=== PATIENT | female | born 1945 | race Caucasian/White ===

== ENCOUNTER → 2018-06-13 08:35 | Outpatient (CLI) | payer BC, MEDICARE, SELFPAY ==
[2018-06-13 14:52] LABS: Basophils % 0.2 % (0.1-2.0); Eosinophils # 0.1 K/mm3 (0.0-0.4); Eosinophils % 0.7 % (0.1-12.0); Hematocrit 35.8 % (37.0-47.0); Hemoglobin 11.3 g/dL (12.2-16.2); Lymphocytes # 1.3 K/mm3 (0.7-4.5); Lymphocytes % 17.9 % (10-50); Mean Corpuscular HGB Conc 31.5 g/dL (31.8-35.4); Mean Corpuscular Volume 92.3 fl (81-99); Mean Platelet Volume 9.4 fl (7.4-10.4); Monocytes # 0.5 K/mm3 (0.1-1.0); Monocytes % 6.4 % (1.7-9.3); Neutrophils # 5.4 K/mm3 (1.8-7.8); Neutrophils % 74.9 % (37.0-80.0); Platelet Count 153 K/mm3 (142-424); Red Blood Count 3.88 M/mm3 (4.20-5.40); Red Cell Distribution Width 20.4 % (11.5-17.5); White Blood Count 7.3 K/mm3 (4.8-10.8)
[2018-06-13 15:00] LABS: INR 2.85 (0.9-1.1); Prothrombin Time 28.5 seconds (9.4-11.8)
== END ==
PROVIDERS: PCP Family Medicine; Visit Provider Family Medicine
DX: D64.9 Anemia, unspecified (principal)
CPT/HCPCS: 36415; 85025; 85610

== ENCOUNTER → 2018-06-24 11:37 | Outpatient (CLI) | payer BC, MEDICARE, SELFPAY ==
[2018-06-24 14:53] LABS: INR 2.07 (0.9-1.1); Prothrombin Time 20.8 seconds (9.4-11.8)
== END ==
PROVIDERS: PCP Family Medicine; Visit Provider Family Medicine
DX: Z51.81 Encounter for therapeutic drug level monitoring (principal); Z79.01 Long term (current) use of anticoagulants; I77.9 Disorder of arteries and arterioles, unspecified
CPT/HCPCS: 85610

== ENCOUNTER → 2018-07-09 12:02 | Outpatient (CLI) | payer BC, MEDICARE, SELFPAY ==
[2018-07-09 15:26] LABS: INR 1.96 (0.9-1.1); Prothrombin Time 19.7 seconds (9.4-11.8)
== END ==
PROVIDERS: PCP Family Medicine; Visit Provider Family Medicine
DX: Z51.81 Encounter for therapeutic drug level monitoring (principal); Z79.01 Long term (current) use of anticoagulants; I77.9 Disorder of arteries and arterioles, unspecified
CPT/HCPCS: 85610

== ENCOUNTER → 2018-08-01 11:11 | Outpatient (CLI) | payer BC, MEDICARE, SELFPAY ==
[2018-08-01 14:40] LABS: INR 1.05 (0.9-1.1); Prothrombin Time 10.9 seconds (9.4-11.8)
== END ==
PROVIDERS: PCP Family Medicine; Visit Provider Family Medicine
DX: Z51.81 Encounter for therapeutic drug level monitoring (principal); Z79.01 Long term (current) use of anticoagulants; I77.9 Disorder of arteries and arterioles, unspecified
CPT/HCPCS: 85610

== ENCOUNTER → 2018-08-06 10:01 | Outpatient (CLI) | payer BC, MEDICARE, SELFPAY ==
[2018-08-06 14:40] LABS: INR 1.09 (0.9-1.1); Prothrombin Time 11.3 seconds (9.4-11.8)
== END ==
PROVIDERS: PCP Family Medicine; Visit Provider Family Medicine
DX: Z51.81 Encounter for therapeutic drug level monitoring (principal); Z79.01 Long term (current) use of anticoagulants; I77.9 Disorder of arteries and arterioles, unspecified
CPT/HCPCS: 85610

== ENCOUNTER 2018-12-16 03:26 | Observation (INO) ==
--- NOTE | 2018-12-16 03:44 | Emergency Department Note ---
ED Disposition Clinical Impression: Community acquired pneumonia Qualifiers: Laterality: right Lung location: upper lobe of lung Qualified Code(s): J18.1 - Lobar pneumonia, unspecified organism Disposition: Admitted as Observation Condition on Discharge: Fair Referrals: Dago Acevedo [Primary Care Provider] - - Critical Care Critical Care Time: No Attestation: On , the high probability of a clinically significant, sudden or life threatening deterioration of the following system(s) required my full and direct attention, intervention and personal management. The time I documented below is in addition to time spent performing reported procedures but includes the following listed in this critical care notation. Medical Decision Making - Anshul Inquiry Pt receiving controlled substance: No Vital Signs: 12/16/18 03:44 Temperature 102.1 F H Temperature Source Oral Pulse Rate [Left Radial] 111 H Respiratory Rate 17 Blood Pressure [Left Arm] 129/49 L Blood Pressure Mean [Left Arm] 75 Blood Pressure Source [Left Arm] Automatic Cuff Blood Pressure Position [Left Arm] Sitting 02 Sat by Pulse Oximetry 95 Oxygen Delivery Method Room Air - Lab Data Lab Results 12/16/18 04:00: WBC 7.3, RBC 4.66, Hgb 13.4, Hct 39.9, MCV 85.7, MCH 28.7, MCHC 33.5, RDW 15.1, Plt Count 179, MPV 8.4, Neut % (Auto) 82.8 H, Lymph % (Auto) 9.5 L, [place] % (Auto) 6.5, Eos % (Auto) 0.6, Baso % (Auto) 0.6, Neut # (Auto) 6.0, Lymph # (Auto) 0.7, [place] # (Auto) 0.5, Eos # (Auto) 0.0, Baso # (Auto) 0.0 12/16/18 04:00: Sodium 138, Potassium 3.8, Chloride 103, Carbon Dioxide 24, Anion Gap 14.8, BUN 17, Creatinine 0.93, Estimated Creat Clear 59, Estimated GFR 59, Est GFR ( Amer) 72, Glucose 107 H, Calcium 8.8, Total Bilirubin 0.6, AST 16, ALT 18, Alkaline Phosphatase 49, Total Protein 6.7, Albumin 3.4, Globulin 3.3 H, Albumin/Globulin Ratio 1.0 L 12/16/18 04:00: Lactate 0.8 12/16/18 04:00: PT 22.3 H, INR 2.23 H 12/16/18 04:06: Urine Color Yellow, Urine Appearance Clear, Urine pH 6.0, Ur Specific [place] 1.020, Urine Protein Trace, Urine Glucose (UA) Negative, Urine Ketones Negative, Urine Blood 1+, Urine Nitrate Negative, Urine Bilirubin Negative, Urine Urobilinogen 0.2, Ur Leukocyte Esterase Negative, Urine RBC 3-5, Ur Squamous Epith Cells Occasional, Amorphous Sediment Trace 12/16/18 04:27: Influenza Type A Ag Negative, Influenza Type B Ag Negative 12/16/18 04:27: Group A Strep Rapid Negative Result diagrams: 12/16/18 04:00 12/16/18 04:00 Orders (Tests/Meds): ED MEDICATIONS Generic Name Dose Route Start Last Admin Trade Name Duncan PRN Reason Stop Dose Admin Ceftriaxone Sodium 1 gm/ 50 mls @ 100 mls/hr 12/16/18 04:45 12/16/18 04:52 Sodium Chloride IV 12/30/18 04:44 100 mls/hr Q24H ANDERS Administration Protocol Azithromycin 500 mg/ Sodium 250 mls @ 250 mls/hr 12/16/18 04:45 12/16/18 05:39 Chloride IV 12/30/18 04:44 250 mls/hr Q24H ANDERS Administration Protocol Discontinued Medications Generic Name Dose Route Start Last Admin Trade Name Duncan PRN Reason Stop Dose Admin Acetaminophen 650 mg 12/16/18 04:04 12/16/18 04:09 Acetaminophen 325mg Tab PO 12/16/18 04:05 650 mg ONCE ONE Administration Ioversol 75 ml 12/16/18 05:22 12/16/18 05:23 Rad-Optiray 350 100ml Vial IV 12/16/18 05:23 75 ml ONCE ONE Administration Protocol Sodium Chloride 10 ml 12/16/18 05:22 12/16/18 05:23 Rad-Saline Flush 10ml Syringe IV 12/16/18 05:23 10 ml ONCE ONE Administration ORDERS Category Date Time Status CT abdomen pelvis w con Stat Cat Scan 12/16/18 04:[address] head/brain wo con Stat Cat Scan 12/16/18 04:[address] sinus wo con Stat Cat Scan 12/16/18 04:43 Taken Blood Culture Stat Micro 12/16/18 04:00 Received Strep Screen Confirmation Stat Micro 12/16/18 04:27 Received - Radiology Data #1 Image(s): Chest Image Reviewed: Yes I reviewed the patient's radiology image, Yes I have reviewed radiologist's interpretation FINDINGS: The cardiomediastinal silhouette and pulmonary vascularity are within normal limits. There is patchy density present in the right upper lobe and right lower lobe possibly due to patchy areas of pneumonia. Granulomas present in the left lower lobe. There is a bone plate over lower cervical spine. No acute bony abnormalities. IMPRESSION: Increased markings in the right upper and right lower lobe suggesting areas of patchy infiltrate. Dictated by: Iván Quinonez MD 12/16/2018 04:31 Electronically signed by Iván Quinonez MD in [place] 12/16/2018 04:31 - CT Data CT Scan: Head, Abdomen, Pelvis, Sinus Time Received: 06:11 ([facility] fax) ED CT Reviewed: Yes: I have viewed the radiologist's interpretation Findings Narrative: Sinus: No acute pathology. Abdomen and pelvis: No definite acute abdominal pathologic finding. Head: No definite acute intracranial abnormality. - Physician Consults Physician Consulted: Migue Time: 06:30 Reason -: Admission Comment/Response: Agrees to admit the patient to the hospital. We discussed the patient's clinical information, including history, exam, laboratory and radiology results and ED course. Per hospital procedure, I will write temporary bridge inpatient orders on the patient. Specific orders requested by the admitting physician: Continue Zithromax and Rocephin Medical Decision Narrative: 4:15 AM: [facility] portal accessed. The patient was admitted there is 08/09/2018 through 08/16/2018 for septic shock due to E. coli urinary tract infection/pyelonephritis. This was complicated by hypoxic respiratory failure. 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 6:00 AM: Discussed results with patient. Discussed disposition. She says she lives alone and does not feel well enough to go home. She prefers to stay at this hospital rather than being transferred to [facility]. Call placed to Dr. Camarena, construction driller for unassigned. General Adult HPI - General Stated complaint: High Fever; Sinus infection Time Seen by Provider: 12/16/18 03:44 - History of Present Illness HPI narrative: Patient is a very poor historian. She has numerous complaints. Her main complaint tonight is fever and she thinks she has a sinus infection, has sinus headache with sinus pain and sinus drainage. She also says "that thing in here" pointing to her abdomen, "keeps going back and forth". She says she has had some vomiting, but no diarrhea. She says her abdomen does hurt. On review of systems she also endorses urinary frequency, says that she urinated 15 times a couple of nights ago and has had urinary frequency since. She says she has had 3 urinary tract infections in the past couple of months and had to be admitted to [facility] to the intensive care unit once. Also endorses cough on review of systems. She says she has a "rare disease" and "they cannot figure out what it is". She says "I will probably before they figure out what it is". She says she is seeing "those doctors in [place]". She is currently on clindamycin, initially could not tell us why she was on that antibiotic, but her shed boss remembers later that she is on that for a possible infection in her right hand. Patient says that she has had previous finger amputations by a plastic surgeon in [place] and she sees her for follow-up. She has a small skin opening on her right hand where she had her fingers amputated and therefore was started on clindamycin. That area is not currently bothering her. She says she did have a flu shot this year, but has not had her pneumonia shot this year. - Related Data Home Medications Medication Instructions Recorded Confirmed Aspirin [Aspir 81] 81 mg PO DAILY 12/16/18 12/16/18 Clindamycin HCl 150 mg PO Q6 12/16/18 12/16/18 Gabapentin 600 mg PO TID 12/16/18 12/16/18 Gabapentin [Gabapentin 100mg Cap] 200 mg PO TID 12/16/18 12/16/18 Pantoprazole Sodium [Protonix 40mg 40 mg PO DAILY 12/16/18 12/16/18 tablet] Warfarin Sodium 1 mg PO DAILY 12/16/18 12/16/18 Warfarin Sodium 6 mg PO DAILY 12/16/18 12/16/18 azaTHIOprine [Azathioprine] 100 mg PO DAILY 12/16/18 12/16/18 predniSONE [Deltasone 10mg 20 mg PO DAILY 12/16/18 12/16/18 tablet] Allergies Allergy/AdvReac Type Severity Reaction Status Date / Time morphine Allergy Verified 12/16/18 03:51 Sulfa (Sulfonamide Allergy Verified 12/16/18 03:51 Antibiotics) [facility] History - Hepatitis A Screen Attestation statement:: This patient has been screened for Hepatitis A risk factors. I have reviewed the patient's past medical history: Yes ROS Obtained: Yes All systems reviewed & no additional complaints - Constitutional Constitutional: Reports fever(s) - ENT Ears, Nose, Mouth, and Throat: Reports headache(s), Reports nasal congestion, Reports nasal discharge, Reports sinus pain, Reports sinus pressure, Reports sore throat - Cardiovascular Cardiovascular: Denies chest pain - Respiratory Respiratory: Yes cough, No dyspnea - Gastrointestinal Gastrointestingal: Reports: abdominal pain, nausea, vomiting. Denies: diarrhea - Genitourinary Female Genitourinary: Reports urinary frequency - Neurologic Neurologic: Reports headache(s) Physical Exam - General General appearance: alert, in no apparent distress - Head Head exam: atraumatic, normocephalic - Eye Eye exam: Present: normal appearance, PERRL, EOMI - ENT ENT exam: Present: normal exam, normal oropharynx, mucous membranes moist, TM's normal bilaterally - Neck Neck exam: Present: normal inspection, full ROM, trachea midline. Absent: meningismus, lymphadenopathy - Chest Chest inspection: Present: normal inspection, symmetric chest wall rise - Respiratory Respiratory exam: Present: normal lung sounds bilaterally. Absent: respiratory distress - Cardiovascular Cardiovascular exam: Present: normal rhythm, tachycardia, normal heart sounds - Abdominal Exam Abdominal exam: Present: soft, tenderness, normal bowel sounds. Absent: distention, guarding, rebound, rigidity Abdominal tenderness: Present: diffuse, mild - Extremities Exam Extremities exam: Present: normal capillary refill, other (Amputation of right fingers except for her thumb.) - Expanded Upper Extremity Exam Right Comment: Band-Aid present on right hand. Under the Band-Aid, there is a 3 mm superficial opening in the skin without any erythema or drainage. No significant signs of infection. - Neurological Exam Neurological exam: Present: alert, oriented X3 - Psychiatric Psychiatric exam: Present: normal affect, normal mood - Skin Skin exam: Present: warm, dry
[2018-12-16 04:11] LABS: Microscopic, Urine URINE MICROSCOPIC (MICROSCOPIC)
[2018-12-16 04:13] LABS: Appearance,Urine CLEAR (Clear); Bilirubin,Urine Negative (Negative); Blood, Urine 1+ (Negative); Color,Urine YELLOW (Yellow); Glucose,Urine (UA) Negative (Negative); Ketones,Urine Negative (Negative); Leukocyte Esterase,Urine Negative (Negative); Protein,Urine TRACE (Negative); Urobilinogen,Urine 0.2 EU/dl (0.2)
[2018-12-16 04:15] LABS: Squamous Epithelial Cell,Urine Occasional #/hpf (0-5)
[2018-12-16 04:16] LABS: Amorphous Sediment,Urine Trace /lpf
[2018-12-16 04:19] LABS: INR 2.23 (0.9-1.1); Prothrombin Time 22.3 seconds (9.4-11.8)
[2018-12-16 04:25] LABS: Albumin Level 3.4 gm/dL (3.4-5.0); Anion Gap 14.8 mEq/L (5-15); Basophils % 0.6 % (0.1-2.0); Bilirubin,Total 0.6 mg/dL (0.2-1.0); Calcium 8.8 mg/dL (8.5-10.1); Eosinophils % 0.6 % (0.1-12.0); Globulin 3.3 gm/dl (1.3-3.2); Hematocrit 39.9 % (37.0-47.0); Hemoglobin 13.4 g/dL (12.2-16.2); Lymphocytes # 0.7 K/mm3 (0.7-4.5); Lymphocytes % 9.5 % (10-50); Mean Corpuscular HGB Conc 33.5 g/dL (31.8-35.4); Mean Corpuscular Volume 85.7 fl (81-99); Mean Platelet Volume 8.4 fl (7.4-10.4); Monocytes # 0.5 K/mm3 (0.1-1.0); Monocytes % 6.5 % (1.7-9.3); Neutrophils % 82.8 % (37.0-80.0); Platelet Count 179 K/mm3 (142-424); Red Blood Count 4.66 M/mm3 (4.20-5.40); Red Cell Distribution Width 15.1 % (11.5-17.5); Total Protein,Serum 6.7 gm/dL (6.4-8.2); White Blood Count 7.3 K/mm3 (4.8-10.8)
--- NOTE | 2018-12-16 07:34 | Pharmacy Consult Notes ---
[facility] Pharmacy VTE Monitoring - Patient Demographics Admission date: 12/16/18 Report Date: 12/16/18 Time: 07:34 Allergies/Adverse Reactions: Patient Allergies morphine Allergy (Verified 12/16/18 03:51) Sulfa (Sulfonamide Antibiotics) Allergy (Verified 12/16/18 03:51) Height: 1.73 m Weight: 75.098 kg Patient Problems: Current Active Problems Community acquired pneumonia (Acute) - VTE Risk Labs: VTE Related Lab Results Hgb 13.4 g/dL (12.2-16.2) 12/16/18 04:00 Hct 39.9 % (37.0-47.0) 12/16/18 04:00 Plt Count 179 K/mm3 (142-424) 12/16/18 04:00 PT 22.3 seconds (9.4-11.8) H 12/16/18 04:00 INR 2.23 (0.9-1.1) H 12/16/18 04:00 BUN 17 mg/dL (7-18) 12/16/18 04:00 Creatinine 0.93 mg/dL (0.55-1.02) 12/16/18 04:00 Estimated Creat Clear 59 mL/min (50-200) 12/16/18 04:00 - Prophylaxis VTE Prophylaxis Ordered?: Yes Types of VTE Prophylaxis: Pharmacological Pharmacologic Type: Warfarin - VTE Diagnosis Confirmed Treatment or plan recommended: Continue Current Treatment
--- NOTE | 2018-12-16 08:50 | History & Physical Report ---
*Admission Date: 12/16/18 *Chief complaint: Fever; thinks she has a sinus infection *History of present illness: 4:15 AM: [facility] portal accessed. The patient was admitted there is 08/09/2018 through 08/16/2018 for septic shock due to E. coli urinary tract infection/pyelonephritis. This was complicated by hypoxic respiratory failure. 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 6:00 AM: Discussed results with patient. Discussed disposition. She says she lives alone and does not feel well enough to go home. She prefers to stay at this hospital rather than being transferred to [facility]. Call placed to Dr. Camarena, weatherization coordinator for unassigned. General Adult HPI - General Stated complaint: High Fever; Sinus infection Time Seen by Provider: 12/16/18 03:44 - History of Present Illness HPI narrative: Patient is a very poor historian. She has numerous complaints. Her main complaint tonight is fever and she thinks she has a sinus infection, has sinus headache with sinus pain and sinus drainage. She also says "that thing in here" pointing to her abdomen, "keeps going back and forth". She says she has had some vomiting, but no diarrhea. She says her abdomen does hurt. On review of systems she also endorses urinary frequency, says that she urinated 15 times a couple of nights ago and has had urinary frequency since. She says she has had 3 urinary tract infections in the past couple of months and had to be admitted to [facility] to the intensive care unit once. Also endorses cough on review of systems. She says she has a "rare disease" and "they cannot figure out what it is". She says "I will probably before they figure out what it is". She says she is seeing "those doctors in [place]". She is currently on clindamycin, initially could not tell us why she was on that antibiotic, but her product marketing intern remembers later that she is on that for a possible infection in her right hand. Patient says that she has had previous finger amputations by a plastic surgeon in [place] and she sees her for follow-up. She has a small skin opening on her right hand where she had her fingers amputated and therefore was started on clindamycin. That area is not currently bothering her. She says she did have a flu shot this year, but has not had her pneumonia shot this year. [facility] History *Have you ever received a pneumonia vaccine?: No *Have you received a flu vaccine this season?: Yes Laterality Cases: Bilateral: Arthroscopy Shoulder - *Social History Alcohol Intake: never *Occupational Status:: disabled *Travel in the last 8 weeks: None Review of Systems - *Neurologic Reports headache(s) Meds Home Medications Medication Instructions Recorded Confirmed Type Aspirin [Aspir 81] 81 mg PO DAILY 12/16/18 12/16/18 History Clindamycin HCl 150 mg PO Q6 12/16/18 12/16/18 History Gabapentin 600 mg PO TID 12/16/18 12/16/18 History Gabapentin [Gabapentin 100mg Cap] 300 mg PO TID 12/16/18 12/16/18 History Lisinopril [Lisinopril 10mg Tab] 10 mg PO DAILY 12/16/18 12/16/18 History Pantoprazole Sodium [Protonix 40mg 40 mg PO DAILY 12/16/18 12/16/18 History tablet] Warfarin Sodium 0.5 mg PO DAILY 12/16/18 12/16/18 History Warfarin Sodium 6 mg PO DAILY 12/16/18 12/16/18 History azaTHIOprine [Azathioprine] 100 mg PO DAILY 12/16/18 12/16/18 History predniSONE [Deltasone 10mg 20 mg PO DAILY 12/16/18 12/16/18 History tablet] Allergies Allergy/AdvReac Type Severity Reaction Status Date / Time morphine Allergy Verified 12/16/18 03:51 Sulfa (Sulfonamide Allergy Verified 12/16/18 03:51 Antibiotics) Exam Vital signs and Labs for Last 24 Hours: Temp Pulse Resp BP Pulse Ox 98.2 F 86 18 108/43 L 97 12/16/18 07:34 12/16/18 07:34 12/16/18 07:34 12/16/18 07:34 12/16/18 07:34 Laboratory Results - last 24 hr 12/16/18 04:00: WBC 7.3, RBC 4.66, Hgb 13.4, Hct 39.9, MCV 85.7, MCH 28.7, MCHC 33.5, RDW 15.1, Plt Count 179, MPV 8.4, Neut % (Auto) 82.8 H, Lymph % (Auto) 9.5 L, [place] % (Auto) 6.5, Eos % (Auto) 0.6, Baso % (Auto) 0.6, Neut # (Auto) 6.0, Lymph # (Auto) 0.7, [place] # (Auto) 0.5, Eos # (Auto) 0.0, Baso # (Auto) 0.0 12/16/18 04:00: Sodium 138, Potassium 3.8, Chloride 103, Carbon Dioxide 24, Anion Gap 14.8, BUN 17, Creatinine 0.93, Estimated Creat Clear 59, Estimated GFR 59, Est GFR ( Amer) 72, Glucose 107 H, Calcium 8.8, Total Bilirubin 0.6, AST 16, ALT 18, Alkaline Phosphatase 49, Total Protein 6.7, Albumin 3.4, Globulin 3.3 H, Albumin/Globulin Ratio 1.0 L 12/16/18 04:00: Lactate 0.8 12/16/18 04:00: PT 22.3 H, INR 2.23 H 12/16/18 04:06: Urine Color Yellow, Urine Appearance Clear, Urine pH 6.0, Ur Specific [place] 1.020, Urine Protein Trace, Urine Glucose (UA) Negative, Urine Ketones Negative, Urine Blood 1+, Urine Nitrate Negative, Urine Bilirubin Negative, Urine Urobilinogen 0.2, Ur Leukocyte Esterase Negative, Urine RBC 3-5, Ur Squamous Epith Cells Occasional, Amorphous Sediment Trace 12/16/18 04:27: Influenza Type A Ag Negative, Influenza Type B Ag Negative 12/16/18 04:27: Group A Strep Rapid Negative I & O for Last 24 hours: Intake & Output 12/13/18 12/14/18 12/15/18 12/16/18 12:59 12:59 11:59 11:59 Intake Total 300 / 300 Balance 300 / 300 Weight 165 lb 9 oz Radiology Reports for the Last 24 Hours: 12/16/2018 chest x-ray IMPRESSION: Increased markings in the right upper and right lower lobe suggesting areas of patchy infiltrate. 12/16/2018 CT of the head IMPRESSION: No acute intracranial finding 12/16/2018 CT of the sinuses IMPRESSION: Minimal mucosal thickening of the ethmoid sinuses. No evidence of acute sinusitis
--- NOTE | 2018-12-16 09:23 | H&P/Discharge Summary ---
<Kelsea Camarena - Last Filed: 12/16/18 15:48> General - General Admission date:: 12/16/18 Exam Vital signs and Labs for Last 24 Hours: Temp Pulse Resp BP Pulse Ox 98.9 F 89 17 142/64 H 96 12/16/18 13:00 12/16/18 12:00 12/16/18 12:00 12/16/18 12:00 12/16/18 12:00 Laboratory Results - last 24 hr 12/16/18 04:00: WBC 7.3, RBC 4.66, Hgb 13.4, Hct 39.9, MCV 85.7, MCH 28.7, MCHC 33.5, RDW 15.1, Plt Count 179, MPV 8.4, Neut % (Auto) 82.8 H, Lymph % (Auto) 9.5 L, Blanco % (Auto) 6.5, Eos % (Auto) 0.6, Baso % (Auto) 0.6, Neut # (Auto) 6.0, Lymph # (Auto) 0.7, Bl[place] # (Auto) 0.5, Eos # (Auto) 0.0, Baso # (Auto) 0.0 12/16/18 04:00: Sodium 138, Potassium 3.8, Chloride 103, Carbon Dioxide 24, Anion Gap 14.8, BUN 17, Creatinine 0.93, Estimated Creat Clear 59, Estimated GFR 59, Est GFR ( Amer) 72, Glucose 107 H, Calcium 8.8, Total Bilirubin 0.6, AST 16, ALT 18, Alkaline Phosphatase 49, Total Protein 6.7, Albumin 3.4, Globulin 3.3 H, Albumin/Globulin Ratio 1.0 L 12/16/18 04:00: Lactate 0.8 12/16/18 04:00: PT 22.3 H, INR 2.23 H 12/16/18 04:06: Urine Color Yellow, Urine Appearance Clear, Urine pH 6.0, Ur Specific [place] 1.020, Urine Protein Trace, Urine Glucose (UA) Negative, Urine Ketones Negative, Urine Blood 1+, Urine Nitrate Negative, Urine Bilirubin Negative, Urine Urobilinogen 0.2, Ur Leukocyte Esterase Negative, Urine RBC 3-5, Ur Squamous Epith Cells Occasional, Amorphous Sediment Trace 12/16/18 04:27: Influenza Type A Ag Negative, Influenza Type B Ag Negative 11/04/19 04:27: Group A Strep Rapid Negative I & O for Last 24 hours: Intake & Output 12/14/18 12/15/18 12/16/18 12/17/18 12:59 11:59 11:59 11:59 Intake Total 420 / 420 Balance 420 / 420 Weight 165 lb 9 oz Hospital Course Hospital Course: It is pertinent to note that the patient's labs and imaging were benign findings, and that she never needed oxygen throughout her stay and also in the ED. Her pneumonia will be treated outpatient with abx and steriods. Will f/u with cultures once available. Advised to f/u with [facility] as well. She was discharged home upon being medically stable and was able to tolerate room air oxygen at rest and with exertion. Results Labs on day of discharge: Labs from last 24 hours 12/16/18 12/16/18 12/16/18 04:27 04:27 04:06 WBC RBC Hgb Hct MCV MCH MCHC RDW Plt Count MPV Neut % (Auto) Lymph % (Auto) Blanco % (Auto) Eos % (Auto) Baso % (Auto) Neut # (Auto) Lymph # (Auto) Bl[place] # (Auto) Eos # (Auto) Baso # (Auto) PT INR Sodium Potassium Chloride Carbon Dioxide Anion Gap BUN Creatinine Estimated Creat Clear Estimated GFR Est GFR ( Amer) Glucose Lactate Calcium Total Bilirubin AST ALT Alkaline Phosphatase Total Protein Albumin Globulin Albumin/Globulin Ratio Urine Color Yellow Urine Appearance Clear Urine pH 6.0 Ur Specific [place] 1.020 Urine Protein Trace Urine Glucose (UA) Negative Urine Ketones Negative Urine Blood 1+ Urine Nitrate Negative Urine Bilirubin Negative Urine Urobilinogen 0.2 Ur Leukocyte Esterase Negative Urine RBC 3-5 Ur Squamous Epith Cells Occasional Amorphous Sediment Trace Influenza Type A Ag Negative Influenza Type B Ag Negative Group A Strep Rapid Negative 12/16/18 12/16/18 12/16/18 04:00 04:00 04:00 WBC RBC Hgb Hct MCV MCH MCHC RDW Plt Count MPV Neut % (Auto) Lymph % (Auto) Blanco % (Auto) Eos % (Auto) Baso % (Auto) Neut # (Auto) Lymph # (Auto) [place] # (Auto) Eos # (Auto) Baso # (Auto) PT 22.3 H INR 2.23 H Sodium 138 Potassium 3.8 Chloride 103 Carbon Dioxide 24 Anion Gap 14.8 BUN 17 Creatinine 0.93 Estimated Creat Clear 59 Estimated GFR 59 Est GFR ( Amer) 72 Glucose 107 H Lactate 0.8 Calcium 8.8 Total Bilirubin 0.6 AST 16 ALT 18 Alkaline Phosphatase 49 Total Protein 6.7 Albumin 3.4 Globulin 3.3 H Albumin/Globulin Ratio 1.0 L Urine Color Urine Appearance Urine pH Ur Specific [place] Urine Protein Urine Glucose (UA) Urine Ketones Urine Blood Urine Nitrate Urine Bilirubin Urine Urobilinogen Ur Leukocyte Esterase Urine RBC Ur Squamous Epith Cells Amorphous Sediment Influenza Type A Ag Influenza Type B Ag Group A Strep Rapid 12/16/18 04:00 WBC 7.3 RBC 4.66 Hgb 13.4 Hct 39.9 MCV 85.7 MCH 28.7 MCHC 33.5 RDW 15.1 Plt Count 179 MPV 8.4 Neut % (Auto) 82.8 H Lymph % (Auto) 9.5 L Blanco % (Auto) 6.5 Eos % (Auto) 0.6 Baso % (Auto) 0.6 Neut # (Auto) 6.0 Lymph # (Auto) 0.7 Bl[place] # (Auto) 0.5 Eos # (Auto) 0.0 Baso # (Auto) 0.0 PT INR Sodium Potassium Chloride Carbon Dioxide Anion Gap BUN Creatinine Estimated Creat Clear Estimated GFR Est GFR ( Amer) Glucose Lactate Calcium Total Bilirubin AST ALT Alkaline Phosphatase Total Protein Albumin Globulin Albumin/Globulin Ratio Urine Color Urine Appearance Urine pH Ur Specific [place] Urine Protein Urine Glucose (UA) Urine Ketones Urine Blood Urine Nitrate Urine Bilirubin Urine Urobilinogen Ur Leukocyte Esterase Urine RBC Ur Squamous Epith Cells Amorphous Sediment Influenza Type A Ag Influenza Type B Ag Group A Strep Rapid Discharge Plan - Patient Discharge Instructions Patient Instructions: Pneumonia-Adult, Pneumococcal Vaccine, DI for Pneumonia -- Adult - Follow up Plan Follow up with: Dago Acevedo [Primary Care Provider] - 12/20/18 11:00 am Disposition: Home, Self-Alf Medications: Home Medications Medication Instructions Recorded Confirmed Type Aspirin [Aspir 81] 81 mg PO DAILY 12/16/18 12/16/18 History Gabapentin 600 mg PO TID 12/16/18 12/16/18 History Gabapentin [Gabapentin 100mg Cap] 200 mg PO TID 12/16/18 12/16/18 History Lisinopril [Lisinopril 10mg Tab] 10 mg PO DAILY 12/16/18 12/16/18 History Ondansetron HCl [Zofran 4mg Tab*] 4 mg PO TID PRN 7 Days #21 tab 12/16/18 Rx Pantoprazole Sodium [Protonix 40mg 40 mg PO DAILY 12/16/18 12/16/18 History tablet] Warfarin Sodium 0.5 mg PO DAILY 12/16/18 12/16/18 History Warfarin Sodium 6 mg PO DAILY 12/16/18 12/16/18 History azaTHIOprine [Azathioprine] 100 mg PO DAILY 12/16/18 12/16/18 History cephALEXin [Keflex 500mg Cap] 500 mg PO BID 7 Days #14 cap 12/16/18 Rx predniSONE [Prednisone 20mg 40 mg PO DAILY 5 Days #10 tab 12/16/18 Rx Tab] Prescriptions/Medication Reconciliation: New Ondansetron HCl [Zofran 4mg Tab*] 4 mg PO TID PRN 7 Days #21 tab PRN Reason: Nausea cephALEXin [Keflex 500mg Cap] 500 mg PO BID 7 Days #14 cap predniSONE [Prednisone 20mg Tab] 40 mg PO DAILY 5 Days #10 tab Continued Gabapentin [Gabapentin 100mg Cap] 200 mg PO TID Pantoprazole Sodium [Protonix 40mg tablet] 40 mg PO DAILY azaTHIOprine [Azathioprine] 100 mg PO DAILY Warfarin Sodium 6 mg PO DAILY Gabapentin 600 mg PO TID Aspirin [Aspir 81] 81 mg PO DAILY Warfarin Sodium 0.5 mg PO DAILY Lisinopril [Lisinopril 10mg Tab] 10 mg PO DAILY Discontinued predniSONE [Deltasone 10mg tablet] 20 mg PO DAILY Clindamycin HCl 150 mg PO Q6 - Problem Reconciliation Problems Reviewed?: Yes <Delaney Elizalde - Last Filed: 12/18/18 13:29> General - General Admission date:: 12/16/18 Discharge date: 12/16/18 *Admission Date: 12/16/18 *Chief complaint: fever *History of present illness: Ms. Crowell is a 73-year-old female with several comorbid conditions who presented to [facility] with a fever. She states she has not felt well for the last couple of days with nausea and vomiting. When her fever was greater than 100 she had a friend bring her to the emergency room. She states she was told at with her last admission to seek medical help if her fever was greater than 100. In the emergency room fever was found to be 102.1. She was felt to have a pneumonia. Results were discussed with the patient. She was noted that she lives alone and did not feel well enough to go home. She preferred to stay [facility] rather than being transferred to the [facility]. Patient then did relate that she lives wit her . [facility] portal was accessed in the emergency room. The patient was admitted there 08/09/2018 through 08/16/2018 for septic shock due to E. coli urinary tract infection/pyelonephritis. This was complicated by hypoxic respiratory failure. 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 Patient has had sinus drainage and a sore throat. She does have a nonproductive cough. She has also been experiencing nausea and vomiting and she attributes this to her fever. She denies diarrhea. Her abdomen has ongoing discomfort. She also describes urinary frequency. She states she has a "rare disease" and they are still trying to "figure out what is wrong with me" at [facility]. She is currently on clindamycin for a possible infection on her right hand at site of amputation. She was placed on this by her plastic surgeon whom she saw last week. She states she has a small opening around the surgical site which has been draining. [facility] History Medical History: Reports:: Deep Vein Thrombosis, Gastroesophageal Reflux Disease(GERD), Peripheral Vascular Disease, Urinary Tract Infection Denies:: Chronic Obstructive Pulmonary Disease (COPD), Coronary Artery Disease *Have you ever received a pneumonia vaccine?: No *Have you received a flu vaccine this season?: Yes Other Medical History: Reports: Arthritis (rheumatoid on Chemo), Sinus Problems Laterality Cases: Bilateral: Arthroscopy Shoulder Other Surgeries: Yes: Appendectomy, Cardiac Catheterization, Cholecystectomy, Hernia Repair, Hysterectomy-Total Amputation: Yes Comment: Amputation of four fingers on the right hand. July 2018 - *Social History Educational Level: Completed GED/General Educational Development Smoking Status: Never smoker Alcohol Intake: never *Occupational Status:: disabled Housing: house Household Members: spouse *Travel in the last 8 weeks: None Family Hx:: no Diabetes Review of Systems - Constitutional Reports fever(s), Reports headache(s) - Eyes Denies change in vision - ENT Reports nasal congestion, Reports sinus pain, Reports sinus pressure, Reports sore throat, Denies ear pain - *Cardiovascular Reports chest pain, Denies shortness of breath, Denies leg swelling - *Respiratory Reports cough (Nonproductive), Denies shortness of breath - *Gastrointestinal Reports abdominal pain Comments: Takes MiraLAX and has regular stools - *Genitourinary Comments: Urinary frequency - *Musculoskeletal Reports abnormal walking, Reports muscle weakness Comments: Walks with a walker due to leg problems - *Neurologic Reports headache(s), Denies dizziness Exam Vital signs and Labs for Last 24 Hours: Temp Pulse Resp BP Pulse Ox 98.2 F 86 18 108/43 L 97 12/16/18 07:34 12/16/18 07:34 12/16/18 07:34 12/16/18 07:34 12/16/18 07:34 Laboratory Results - last 24 hr 12/16/18 04:00: WBC 7.3, RBC 4.66, Hgb 13.4, Hct 39.9, MCV 85.7, MCH 28.7, MCHC 33.5, RDW 15.1, Plt Count 179, MPV 8.4, Neut % (Auto) 82.8 H, Lymph % (Auto) 9.5 L, Blanco % (Auto) 6.5, Eos % (Auto) 0.6, Baso % (Auto) 0.6, Neut # (Auto) 6.0, Lymph # (Auto) 0.7, [place] # (Auto) 0.5, Eos # (Auto) 0.0, Baso # (Auto) 0.0 12/16/18 04:00: Sodium 138, Potassium 3.8, Chloride 103, Carbon Dioxide 24, Anion Gap 14.8, BUN 17, Creatinine 0.93, Estimated Creat Clear 59, Estimated GFR 59, Est GFR ( Amer) 72, Glucose 107 H, Calcium 8.8, Total Bilirubin 0.6, AST 16, ALT 18, Alkaline Phosphatase 49, Total Protein 6.7, Albumin 3.4, Globulin 3.3 H, Albumin/Globulin Ratio 1.0 L 12/16/18 04:00: Lactate 0.8 12/16/18 04:00: PT 22.3 H, INR 2.23 H 12/16/18 04:06: Urine Color Yellow, Urine Appearance Clear, Urine pH 6.0, Ur Specific [place] 1.020, Urine Protein Trace, Urine Glucose (UA) Negative, Urine Ketones Negative, Urine Blood 1+, Urine Nitrate Negative, Urine Bilirubin Negative, Urine Urobilinogen 0.2, Ur Leukocyte Esterase Negative, Urine RBC 3-5, Ur Squamous Epith Cells Occasional, Amorphous Sediment Trace 12/16/18 04:27: Influenza Type A Ag Negative, Influenza Type B Ag Negative 12/16/18 04:27: Group A Strep Rapid Negative I & O for Last 24 hours: Intake & Output 12/13/18 12/14/18 12/15/18 12/16/18 12:59 12:59 11:59 11:59 Intake Total 300 / 300 Balance 300 / 300 Weight 165 lb 9 oz Radiology Reports for the Last 24 Hours: CT of abdomen/pelvis 12/16/18 IMPRESSION: 1. No definite acute finding. 2. Prior cholecystectomy with biliary ectasia. 3. Mild dilatation of both renal pelvocaliceal systems suggesting mild UB stasis and doses left greater than right 12/16/18 CXR IMPRESSION: Increased markings in the right upper and right lower lobe suggesting areas of patchy infiltrate 12/16/18 CT of the head IMPRESSION: No acute intracranial finding 12/16/18 CT of the sinuses IMPRESSION: Minimal mucosal thickening of the ethmoid sinuses. No evidence of acute sinusitis - Constitutional no acute distress - *Routine HEENT Exam Head: Present: normocephalic, atraumatic Eye: Present: PERRL. Absent: conjunctival icterus, scleral injection, conjunctivae pink ENT: Present: mucous membranes moist, oropharynx clear - *Routine Neck Exam Present: supple, full ROM. Absent: carotid bruit, lymphadenopathy, thyromegaly - *Routine Respiratory Exam Comments: Right basilar crackles - *Routine Cardiovascular Exam Present: RRR - *Routine Abdominal Exam Present: soft, normoactive bowel sounds, tenderness (Mild and diffusely tender in lower abdomen). Absent: distended, guarding - *Routine Extremities Exam Present: pulses intact. Absent: edema, calf tenderness Comments: BURGESS - *Routine Neurological Exam Present: alert, oriented X3, moving all extremities, normal speech Hospital Course Hospital Course: After receiving Tylenol in the emergency room patient had no more fever. She denied chest pain and had no further shortness of breath with satisfactory O2 sats. She was able to eat 50% of her breakfast and seemed to tolerate this well. She did complain of some nausea in the p.m. and was given Zofran for this. She was given a dose of Rocephin and Zithromax in the emergency room. Patient was felt stable to be discharged home. She was discharged home on oral antibiotics and steroids. She was given Zofran for her nausea. Patient was cautioned about dietary intake. She is to follow-up with her primary care physician, Dr. Acevedo, 12/18/18. Results Labs on day of discharge: Labs from last 24 hours 12/16/18 12/16/18 12/16/18 04:27 04:27 04:06 WBC RBC Hgb Hct MCV MCH MCHC RDW Plt Count MPV Neut % (Auto) Lymph % (Auto) Bl[place] % (Auto) Eos % (Auto) Baso % (Auto) Neut # (Auto) Lymph # (Auto) [place] # (Auto) Eos # (Auto) Baso # (Auto) PT INR Sodium Potassium Chloride Carbon Dioxide Anion Gap BUN Creatinine Estimated Creat Clear Estimated GFR Est GFR ( Amer) Glucose Lactate Calcium Total Bilirubin AST ALT Alkaline Phosphatase Total Protein Albumin Globulin Albumin/Globulin Ratio Urine Color Yellow Urine Appearance Clear Urine pH 6.0 Ur Specific [place] 1.020 Urine Protein Trace Urine Glucose (UA) Negative Urine Ketones Negative Urine Blood 1+ Urine Nitrate Negative Urine Bilirubin Negative Urine Urobilinogen 0.2 Ur Leukocyte Esterase Negative Urine RBC 3-5 Ur Squamous Epith Cells Occasional Amorphous Sediment Trace Influenza Type A Ag Negative Influenza Type B Ag Negative Group A Strep Rapid Negative 12/16/18 12/16/18 12/16/18 04:00 04:00 04:00 WBC RBC Hgb Hct MCV MCH MCHC RDW Plt Count MPV Neut % (Auto) Lymph % (Auto) [place] % (Auto) Eos % (Auto) Baso % (Auto) Neut # (Auto) Lymph # (Auto) [place] # (Auto) Eos # (Auto) Baso # (Auto) PT 22.3 H INR 2.23 H Sodium 138 Potassium 3.8 Chloride 103 Carbon Dioxide 24 Anion Gap 14.8 BUN 17 Creatinine 0.93 Estimated Creat Clear 59 Estimated GFR 59 Est GFR ( Amer) 72 Glucose 107 H Lactate 0.8 Calcium 8.8 Total Bilirubin 0.6 AST 16 ALT 18 Alkaline Phosphatase 49 Total Protein 6.7 Albumin 3.4 Globulin 3.3 H Albumin/Globulin Ratio 1.0 L Urine Color Urine Appearance Urine pH Ur Specific [place] Urine Protein Urine Glucose (UA) Urine Ketones Urine Blood Urine Nitrate Urine Bilirubin Urine Urobilinogen Ur Leukocyte Esterase Urine RBC Ur Squamous Epith Cells Amorphous Sediment Influenza Type A Ag Influenza Type B Ag Group A Strep Rapid 12/16/18 04:00 WBC 7.3 RBC 4.66 Hgb 13.4 Hct 39.9 MCV 85.7 MCH 28.7 MCHC 33.5 RDW 15.1 Plt Count 179 MPV 8.4 Neut % (Auto) 82.8 H Lymph % (Auto) 9.5 L [place] % (Auto) 6.5 Eos % (Auto) 0.6 Baso % (Auto) 0.6 Neut # (Auto) 6.0 Lymph # (Auto) 0.7 [place] # (Auto) 0.5 Eos # (Auto) 0.0 Baso # (Auto) 0.0 PT INR Sodium Potassium Chloride Carbon Dioxide Anion Gap BUN Creatinine Estimated Creat Clear Estimated GFR Est GFR ( Amer) Glucose Lactate Calcium Total Bilirubin AST ALT Alkaline Phosphatase Total Protein Albumin Globulin Albumin/Globulin Ratio Urine Color Urine Appearance Urine pH Ur Specific [place] Urine Protein Urine Glucose (UA) Urine Ketones Urine Blood Urine Nitrate Urine Bilirubin Urine Urobilinogen Ur Leukocyte Esterase Urine RBC Ur Squamous Epith Cells Amorphous Sediment Influenza Type A Ag Influenza Type B Ag Group A Strep Rapid DS: Diagnosis - Discharge Diagnosis (1) Community acquired pneumonia Status: Acute (2) Rheumatoid arthritis Status: Chronic (3) Vasculitis Status: Chronic Discharge Plan - Problem Reconciliation Problems Reviewed?: Yes
== END 2018-12-16 15:14 | disposition home or self-care (01) ==
LOC: ER 03:26 → 2ND 03:26
PROVIDERS: ADMIT Emergency Medicine; ATTEND Emergency Medicine
CPT/HCPCS: 70450; 70486; 71020; 71046; 74177; 80053; 81001; 83605; 85025; 85610; 87040; 87275; 87276; 87430; 96365; 96367; 99284; G0378; J0456; Q9967